=== PATIENT | male | born 1990 | race Caucasian/White ===

== ENCOUNTER 2016-12-26 22:57 | Emergency (ER) | payer OTHER ==
--- NOTE | 2016-12-26 23:07 | PDOC ---
History of Present Illness - General Chief Complaint: Nausea/Vomiting Stated Complaint: NAUSEA/VOMITING Time Seen by Provider: 12/26/16 23:01 History Source: Patient Exam Limitations: No Limitations (This gentleman) - History of Present Illness Initial Comments: 12/26/16 23:15 This is a 26-year-old male who comes in complaining of acute onset of nausea vomiting and diarrhea after eating out this afternoon. Patient last ate about 1 PM and developed symptoms about 7 PM. Patient ate macaroni and cheese as well as spaghetti and meatballs. Patient denies any fevers or chills. Patient is complaining of some generalized diffuse abdominal crampy type pain. Patient has not taken anything for his symptoms. Patient is also complaining that he is feeling somewhat weak and dizzy. PAST MEDICAL HISTORY: Asthma PAST SURGICAL HISTORY: no significant history FAMILY HISTORY: no pertinant history SOCIAL HISTORY: Pt lives with family and is employed. MEDICATIONS: reviewed ALLERGIES: As per nursing notes Review of Systems General: No fevers or chills, no weakness, no weight loss HEENT: No change in vision. No sore throat,. No ear pain CardioVascular: No chest pain or shortness of breath Respiratory:No cough, or wheezing. Gastrointestinal: + nausea, vomiting, and diarrhea Genitourinary: No dysuria, hematuria, or frequency Musculoskeletal: No joint or muscle pain or swelling Neurologic: No headache, vertigo, dizziness or loss of consciousness Psychiatric: nor depression Skin: No rashes or easy bruising Endocrine: no increased thirst or abnormal weight change Allergic: no skin or latex allergy All other systems reviewed and normal Exam: General: Well-nourished well-developed individual, no acute distress HEENT: Throat: Normal, tonsils normal, no erythema or exudate Neck: Supple, no meningeal signs, no lymphadenopathy Eyes::Pupils equal reactive and round, extraocular motion intact Chest: Nontender to palpation Cardiac: S1-S2 normal, regular rate and rhythm, no murmurs rubs or gallops Respiratory: Lungs clear to auscultation bilateral Abdomen: Soft, nondistended, normal bowel sounds, mildly tender to palpation diffusely, no guarding or rebound Extremities: Warm, dry, no cyanosis, clubbing, or edema Skin: No rashes Neuro: Alert and oriented x3, nonfocal exam, grossly intact, normal gait Psych: Normal mood and affect Assessment and plan: This is a 26-year-old male brought in by his father for evaluation of nausea vomiting diarrhea. Patient given Zofran, and fluids. Patient had a markedly elevated white count of 17,000 so a CAT scan was done to rule out any abdominal process. Patient's CAT scan was negative for any acute abdominal pathology. Patient felt better after the fluids and Zofran and discharged home. 12/27/16 01:37 Past History - Past Medical History Allergies/Adverse Reactions: Allergies Allergy/AdvReac Type Severity Reaction Status Date / Time No Known Allergies Allergy Unverified 12/26/16 23:02 Home Medications: Ambulatory Orders Albuterol Sulfate 5 mg IH PRN 12/26/16 - Psycho/Social/Smoking Cessation Hx Anxiety: No Suicidal Ideation: No Smoking History: Unknown if ever smoked Have you smoked in the past 12 months: No Number of Cigarettes Smoked Daily: 0 Information on smoking cessation initiated: No Hx Alcohol Use: No Drug/Substance Use Hx: No Substance Use Type: None *Physical Exam - Vital Signs Last Vital Signs Temp Pulse Resp BP Pulse Ox 97.6 F 100 H 14 113/88 100 12/26/16 22:59 12/26/16 22:59 12/26/16 22:59 12/26/16 22:59 12/26/16 22:59 ED Treatment Course - LABORATORY CBC & Chemistry Diagram: 12/26/16 23:17 12/26/16 23:17 *DC/Admit/Observation/Transfer Diagnosis at time of Disposition: Nausea, vomiting, and diarrhea - Discharge Dispostion Disposition: HOME Condition at time of disposition: Good Admit: No - Patient Instructions Printed Discharge Instructions: DI for Vomiting -- Adult, DI for Diarrhea and Traveler's Diarrhea -- Adult Additional Instructions: You can get purchase some [id number] Imodium and take as needed for the diarrhea.. Clear liquids only for the next 6 hours.. After that if you have had no further vomiting you may have bananas, rice, applesauce, or toast. If no further vomiting for another 8 hours you may have regular food. If you vomit again then nothing to eat or drink for 2 hours. then start back with the clear liquids. Return to the emergency department immediately with ANY new, persistent or worsening symptoms. You MUST call and follow up with your doctor tomorrow if not better. Please make sure your doctor reviews the results of your emergency evaluation. Return to the emergency department immediately with ANY new, persistent or worsening symptoms. Continue any medications as previously prescribed by your physician. You should follow up with your primary doctor as soon as possible regarding today's emergency department visit. . Please make sure your doctor reviews the results of your emergency evaluation. Thank you for coming to the Emergency Department today for your care. It was a pleasure to see you today. Please note that your evaluation is INCOMPLETE until you follow-up with your doctor.
[2016-12-26] MEDS ORDERED: ONDANSETRON 4 MG/2 ML VIAL IVPB ONE (23:11)
[2016-12-26] MEDS ORDERED: SODIUM CHLORIDE 1,000 ML IV ONE (23:11)
[2016-12-26 23:12] VITALS: BP 113/88; PULSE 100; TEMP 97.6; BMI 32.5
[2016-12-26] MEDS ORDERED: HYOSCYAMINE SULFATE 0.125 MG *ODT PO ONE (23:12)
[2016-12-26 23:22] LABS: BASOPHIL 3.6 % (0-2.0); EOSINOPHIL 0.5 % (0-4.5); MCH 32.1 pg (25.7-33.7); MCHC 35.6 g/dl (32.0-35.9); MEAN CELL VOLUME 90.1 fl (80-96); MEAN PLT VOLUME 8.8 fl (7.5-11.1); NEUTROPHILS 85.9 % (42.8-82.8); PLATELET COUNT 240 K/MM3 (134-434); RDW 11.9 % (11.9-15.9); WHITE BLOOD COUNT 17.2 K/mm3 (4.0-10.8)
[2016-12-26] MEDS ORDERED: ONDANSETRON 4 MG/2 ML VIAL ONE ×2 (23:22→23:23)
[2016-12-26] MEDS ORDERED: HYOSCYAMINE SULFATE 0.125 MG *ODT ONE (23:23)
[2016-12-26 23:51] LABS: ALBUMIN 4.6 g/dl (3.5-5.0); ALK PHOS 105 U/L (32-92); ANION GAP 12 (8-16); BILIRUBIN,TOTAL 1.4 mg/dl (0.2-1.0); CALCIUM 9.7 mg/dl (8.4-10.2); CO2 24 mmol/L (22-28); COCKROFT - GAULT 138.85; GLUCOSE,RANDOM 145 mg/dl (74-106); SGOT/AST 24 U/L (10-42); SGPT/ALT 33 U/L (10-40); TOT PROT 7.8 g/dl (6.4-8.3)
== END 2016-12-27 01:46 | disposition home or self-care (01) ==
LOC: FER 22:57
PROC: 3E033GC Introduction of Other Therapeutic Substance into Peripheral Vein, Percutaneous Approach (ICD-10-PCS; principal; 2016-12-26)
PROC: 3E0337Z Introduction of Electrolytic and Water Balance Substance into Peripheral Vein, Percutaneous Approach (ICD-10-PCS; 2016-12-26)
DX: R11.2 Nausea with vomiting, unspecified (principal); R19.7 Diarrhea, unspecified
CPT/HCPCS: 36415; 74176-TC; 80053; 85025; 99283-25